=== PATIENT | female | born 1960 | race Two or more races ===

== ENCOUNTER 2022-12-06 12:04 | Inpatient (IN) | payer BC, MEDICAID, OTHER ==
[~2022-12-06] VITALS: Ht 160 cm; Wt 102.9 kg
[2022-12-06] MEDS ORDERED: SODIUM CHLORIDE 0.9% 1,000 ML IV ONE ×2 (12:15→15:00)
[2022-12-06] MEDS ORDERED: ACETAMINOPHEN 325 MG TAB PO ONE (12:30)
[2022-12-06 12:53] LABS: Basophils # (auto) 0.1 10 ^3/uL (0-0.2); Basophils % (auto) 0.5 % (0.0-2.0); Eosinophils # (auto) 0.1 10 ^3/uL (0-0.8); Eosinophils % (auto) 0.6 % (0.0-7.0); Hematocrit 41.2 % (36.0-46.0); Hemoglobin 13.3 g/dL (12.2-16.2); Lymphocytes # (auto) 1.1 10 ^3/uL (0.4-5.4); Lymphocytes % (auto) 6.2 % (10.0-50.0); Mean Corpuscular Hemoglobin 29.2 pg (28.0-32.0); Mean Corpuscular Hgb Conc. 32.4 g/dL (32.0-36.0); Mean Corpuscular Volume 90.1 fL (80.0-100.0); Monocytes # (auto) 0.6 10 ^3/uL (0-1.3); Monocytes % (auto) 3.8 % (0.0-12.0); Neutrophils # (auto) 15.2 10 ^3/uL (1.6-8.6); Neutrophils % (auto) 88.9 % (37.0-80.0); Red Blood Cells 4.57 10^6/uL (4.0-5.20); Red Cell Distribution Width 13.4 % (11.8-14.3); White Blood Cell 17.1 10^3/uL (4.4-10.8)
[2022-12-06 12:58] VITALS: PULSE 120; RESP 16; O2SAT 96
[2022-12-06 13:11] LABS: Alanine Aminotransferase 38 U/L (7-40); Albumin 4.5 g/dL (3.2-4.8); Alkaline Phosphatase 67 U/L (46-116); Anion Gap 10.5 (5-15); Aspartate Aminotransferase 31 U/L (13-40); BUN/Creatinine Ratio 16.8 (10.0-20.0); Bilirubin, Total 0.8 mg/dL (0.2-1.0); Blood Urea Nitrogen 20 mg/dL (9-23); Calcium 9.9 mg/dL (8.5-10.1); Carbon Dioxide 22.5 mmol/L (20-30); Chloride 105 mmol/L (98-107); Glucose 170 mg/dL (74-106); Potassium 4.2 mmol/L (3.5-5.1); Sodium 138 mmol/L (136-145); Total Protein 7.7 g/dL (5.7-8.2)
[2022-12-06 13:12] LABS: Lactic Acid w/Reflex 3.6 mmol/L (0.4-2.0)
[2022-12-06] MEDS ORDERED: cefTRIAXone 1GM/50ML D5W 50 ML IV ONE (13:15)
[2022-12-06] MEDS ORDERED: levoFLOXacin 500MG 100 ML IV ONE (13:15)
[2022-12-06 14:12] LABS: Urine Bacteria FEW /hpf (None Seen); Urine Blood 2+ /uL (Negative); Urine Budding Yeast MODERATE /hpf (None Seen); Urine Clarity HAZY (Clear); Urine Hyaline Cast FEW /lpf (0 - 2); Urine Mucus FEW (None Seen); Urine Protein, UAD TRACE (Negative); Urine Specific Gravity 1.013 (1.001-1.035); Urine Urobilinogen Normal (Negative); Urine WBC 362 /hpf (0 - 5); Urine WBC Clumps PRESENT /hpf (None Seen); Urine pH 6.5 (5.0-8.0)
[2022-12-06 14:13] LABS: Urine Color STRAW (Yellow)
[2022-12-06] MEDS ORDERED: LOS25T PO (14:59)
[2022-12-06] MEDS ORDERED: AMLO1TAB23 PO (14:59)
[2022-12-06] MEDS ORDERED: FENO160T PO (14:59)
[2022-12-06] MEDS ORDERED: ALLO100T PO (14:59)
[2022-12-06] MEDS: SODIUM CHLORIDE 0.9% 1,000 ML IV SCH (15:00)
[2022-12-06] MEDS ORDERED: MORPHINE SULFATE INJ 2 MG/ml SYRG IV PRN (15:00)
[2022-12-06] MEDS ORDERED: NITROGLYCERIN 0.4 MG SL TAB SL PRN (15:00)
[2022-12-06] MEDS ORDERED: DEXTROSE (50%) 50ML SYRG IV PRN (15:00)
[2022-12-06] MEDS ORDERED: hydrALAZINE HCL 20 MG/ML VL IV PRN (15:00)
[2022-12-06 15:30] LABS: LDL Cholesterol 72 mg/dL (< 100); Triglycerides 296 mg/dL (< 150)
[2022-12-06 15:32] LABS: Cholesterol 211 mg/dL (< 200); HDL Cholesterol 47 mg/dL (40-59)
[2022-12-06] MEDS: ACCU-CHEK COMFORT CURVE STRIP VI SCH ×2 (17:43→21:55)
[2022-12-06] MEDS: InsuLIN REG 1unit/0.01ml Soln (100units/ml) SC SCH ×2 (17:47→22:03)
[2022-12-06 18:48] LABS: Lactic Acid w/Reflex 2.3 mmol/L (0.4-2.0)
[2022-12-06 19:45] VITALS: PULSE 89; RESP 14; O2SAT 96
[2022-12-06 21:01] VITALS: BP 164/61; PULSE 93; RESP 20; TEMP 101.2
[2022-12-06] MEDS ORDERED: ERGO1CAP12 PO (21:18)
[2022-12-06] MEDS: ACETAMINOPHEN 325 MG TAB PO PRN (21:55)
[2022-12-06 22:00] VITALS: BP 164/61; PULSE 93; RESP 20; TEMP 101.2; O2SAT 97
[2022-12-07] VITALS (9 sets, daily range): BP systolic 132–155; BP diastolic 62–80; PULSE 72–96; RESP 17–20; TEMP 98.3–101.4; O2SAT 90–96
[2022-12-07] MEDS: ACETAMINOPHEN 325 MG TAB PO PRN ×2 (05:16→13:44)
[2022-12-07] MEDS: ACCU-CHEK COMFORT CURVE STRIP VI SCH ×4 (06:34→21:42)
[2022-12-07] MEDS: SODIUM CHLORIDE 0.9% 1,000 ML IV SCH ×3 (06:36→20:45)
[2022-12-07] MEDS: InsuLIN REG 1unit/0.01ml Soln (100units/ml) SC SCH ×4 (06:37→21:43)
[2022-12-07 06:42] LABS: Alanine Aminotransferase 26 U/L (7-40); Alkaline Phosphatase 54 U/L (46-116); Anion Gap 9.5 (5-15); BUN/Creatinine Ratio 11.8 (10.0-20.0); Blood Urea Nitrogen 10 mg/dL (9-23); Calcium 9.3 mg/dL (8.7-10.4); Carbon Dioxide 24.5 mmol/L (20-30); Chloride 103 mmol/L (98-107); Glucose 188 mg/dL (74-106); Potassium 3.5 mmol/L (3.5-5.1); Sodium 137 mmol/L (136-145)
[2022-12-07 06:43] LABS: Albumin 4.1 g/dL (3.2-4.8)
[2022-12-07 06:44] LABS: Aspartate Aminotransferase 22 U/L (13-40); Bilirubin, Total 0.7 mg/dL (0.2-1.0); Total Protein 7.2 g/dL (5.7-8.2)
[2022-12-07 06:54] LABS: Basophils # (auto) 0.1 10 ^3/uL (0-0.2); Basophils % (auto) 0.5 % (0.0-2.0); Eosinophils # (auto) 0 10 ^3/uL (0-0.8); Eosinophils % (auto) 0.3 % (0.0-7.0); Hematocrit 38.1 % (36.0-46.0); Hemoglobin 12.2 g/dL (12.2-16.2); Lymphocytes # (auto) 1.5 10 ^3/uL (0.4-5.4); Mean Corpuscular Hemoglobin 28.8 pg (28.0-32.0); Mean Corpuscular Hgb Conc. 32.1 g/dL (32.0-36.0); Mean Corpuscular Volume 89.9 fL (80.0-100.0); Monocytes # (auto) 0.6 10 ^3/uL (0-1.3); Monocytes % (auto) 4.7 % (0.0-12.0); Neutrophils # (auto) 10.3 10 ^3/uL (1.6-8.6); Neutrophils % (auto) 82.5 % (37.0-80.0); Red Blood Cells 4.24 10^6/uL (4.0-5.20); Red Cell Distribution Width 13.8 % (11.8-14.3); White Blood Cell 12.5 10^3/uL (4.4-10.8)
[2022-12-07] MEDS ORDERED: cefTRIAXone 1GM/50ML D5W 50 ML IV SCH (09:00)
[2022-12-07] MEDS: Fenofibrate 160 MG TABLETS PO SCH (09:25)
[2022-12-07] MEDS: ALLOPURINOL 100 MG TAB PO SCH (09:27)
[2022-12-07] MEDS: LOSARTAN POTASSIUM 25 MG TAB PO SCH (09:32)
[2022-12-07] MEDS: amLODIPine BESYLATE 5 MG TAB PO SCH (09:33)
[2022-12-07] MEDS: ENOXAPARIN SOD 40 MG/0.4 ML SYRINGE SC SCH (09:33)
[2022-12-07] MEDS ORDERED: levoFLOXacin 500MG 100 ML IV SCH (10:00)
[2022-12-07] MEDS: PIPERACILLIN-TAZOB 3.375GM 100 ML IV SCH ×2 (13:49→21:42)
[2022-12-08] VITALS (7 sets, daily range): BP systolic 123–152; BP diastolic 52–80; PULSE 74–80; RESP 16–94; TEMP 98.1–99.4; O2SAT 93–97
[2022-12-08] MEDS: PIPERACILLIN-TAZOB 3.375GM 100 ML IV SCH ×3 (06:48→21:10)
[2022-12-08] MEDS: InsuLIN REG 1unit/0.01ml Soln (100units/ml) SC SCH ×4 (06:49→21:15)
[2022-12-08] MEDS: SODIUM CHLORIDE 0.9% 1,000 ML IV SCH ×3 (06:49→20:45)
[2022-12-08] MEDS: ACCU-CHEK COMFORT CURVE STRIP VI SCH ×4 (06:49→21:16)
[2022-12-08 07:56] LABS: Basophils # (auto) 0 10 ^3/uL (0-0.2); Basophils % (auto) 0.2 % (0.0-2.0); Eosinophils # (auto) 0.2 10 ^3/uL (0-0.8); Eosinophils % (auto) 1.4 % (0.0-7.0); Hematocrit 37.3 % (36.0-46.0); Hemoglobin 12.4 g/dL (12.2-16.2); Lymphocytes # (auto) 2.9 10 ^3/uL (0.4-5.4); Lymphocytes % (auto) 26.4 % (10.0-50.0); Mean Corpuscular Hemoglobin 30.2 pg (28.0-32.0); Mean Corpuscular Hgb Conc. 33.3 g/dL (32.0-36.0); Mean Corpuscular Volume 90.5 fL (80.0-100.0); Monocytes # (auto) 0.9 10 ^3/uL (0-1.3); Monocytes % (auto) 7.9 % (0.0-12.0); Neutrophils % (auto) 64.1 % (37.0-80.0); Red Blood Cells 4.12 10^6/uL (4.0-5.20); Red Cell Distribution Width 13.5 % (11.8-14.3)
[2022-12-08 08:03] LABS: Alanine Aminotransferase 29 U/L (7-40); Albumin 4.2 g/dL (3.2-4.8); Alkaline Phosphatase 49 U/L (46-116); Anion Gap 9.4 (5-15); Aspartate Aminotransferase 23 U/L (13-40); BUN/Creatinine Ratio 13.4 (10.0-20.0); Bilirubin, Total 0.6 mg/dL (0.2-1.0); Blood Urea Nitrogen 11 mg/dL (9-23); Calcium 9.1 mg/dL (8.5-10.1); Carbon Dioxide 23.6 mmol/L (20-30); Chloride 101 mmol/L (98-107); Glucose 204 mg/dL (74-106); Magnesium 1.5 mg/dL (1.6-2.6); Potassium 3.4 mmol/L (3.5-5.1); Sodium 134 mmol/L (136-145); Total Protein 7.4 g/dL (5.7-8.2)
[2022-12-08] MEDS ORDERED: POTASSIUM CHL 20 Meq TABLET PO ONE (08:30)
[2022-12-08] MEDS ORDERED: cefTRIAXone 1GM/50ML D5W 50 ML IV SCH (09:00)
[2022-12-08] MEDS: amLODIPine BESYLATE 5 MG TAB PO SCH (09:32)
[2022-12-08] MEDS: ALLOPURINOL 100 MG TAB PO SCH (09:32)
[2022-12-08] MEDS: MAGNESIUM SULFATE 1GM/100ML 100 ML IV SCH ×2 (09:33→11:21)
[2022-12-08] MEDS: ENOXAPARIN SOD 40 MG/0.4 ML SYRINGE SC SCH (09:39)
[2022-12-08] MEDS: Fenofibrate 160 MG TABLETS PO SCH (10:00)
[2022-12-08] MEDS: LOSARTAN POTASSIUM 25 MG TAB PO SCH (11:21)
[2022-12-08] MEDS: MAGNESIUM OXIDE 400 MG TAB PO SCH (21:11)
[2022-12-09] VITALS (7 sets, daily range): BP systolic 129–160; BP diastolic 55–88; PULSE 69–88; RESP 18–20; TEMP 97.9–99.1; O2SAT 93–99
[2022-12-09] MEDS: SODIUM CHLORIDE 0.9% 1,000 ML IV SCH ×3 (04:45→20:45)
[2022-12-09] MEDS: PIPERACILLIN-TAZOB 3.375GM 100 ML IV SCH ×3 (05:16→21:45)
[2022-12-09] MEDS: ACCU-CHEK COMFORT CURVE STRIP VI SCH ×4 (06:21→21:37)
[2022-12-09] MEDS: InsuLIN REG 1unit/0.01ml Soln (100units/ml) SC SCH ×4 (06:21→21:34)
[2022-12-09 06:28] LABS: Anion Gap 6.9 (5-15); Carbon Dioxide 21.1 mmol/L (20-30); Chloride 105 mmol/L (98-107); Potassium 3.8 mmol/L (3.5-5.1); Sodium 133 mmol/L (136-145)
[2022-12-09 06:29] LABS: Calcium 9.3 mg/dL (8.7-10.4)
[2022-12-09 06:33] LABS: Glucose 190 mg/dL (74-106)
[2022-12-09 06:34] LABS: BUN/Creatinine Ratio 9.1 (10.0-20.0); Blood Urea Nitrogen 7 mg/dL (9-23); Magnesium 1.9 mg/dL (1.6-2.6)
[2022-12-09 06:43] LABS: Basophils # (auto) 0 10 ^3/uL (0-0.2); Basophils % (auto) 0.5 % (0.0-2.0); Eosinophils # (auto) 0.3 10 ^3/uL (0-0.8); Eosinophils % (auto) 2.9 % (0.0-7.0); Hematocrit 39.5 % (36.0-46.0); Hemoglobin 13.1 g/dL (12.2-16.2); Lymphocytes # (auto) 2.8 10 ^3/uL (0.4-5.4); Lymphocytes % (auto) 30.2 % (10.0-50.0); Mean Corpuscular Hemoglobin 30.5 pg (28.0-32.0); Mean Corpuscular Hgb Conc. 33.3 g/dL (32.0-36.0); Mean Corpuscular Volume 91.5 fL (80.0-100.0); Monocytes # (auto) 0.9 10 ^3/uL (0-1.3); Monocytes % (auto) 9.1 % (0.0-12.0); Neutrophils # (auto) 5.3 10 ^3/uL (1.6-8.6); Neutrophils % (auto) 57.3 % (37.0-80.0); Nucleated Red Blood Cells % 0.1 %; Red Blood Cells 4.31 10^6/uL (4.0-5.20); Red Cell Distribution Width 13.7 % (11.8-14.3); White Blood Cell 9.3 10^3/uL (4.4-10.8)
[2022-12-09] MEDS: Fenofibrate 160 MG TABLETS PO SCH (09:55)
[2022-12-09] MEDS: MAGNESIUM OXIDE 400 MG TAB PO SCH ×2 (10:00→21:40)
[2022-12-09] MEDS: ALLOPURINOL 100 MG TAB PO SCH (10:01)
[2022-12-09] MEDS: LOSARTAN POTASSIUM 25 MG TAB PO SCH (10:01)
[2022-12-09] MEDS: ENOXAPARIN SOD 40 MG/0.4 ML SYRINGE SC SCH (10:02)
[2022-12-09] MEDS: amLODIPine BESYLATE 5 MG TAB PO SCH (10:02)
[2022-12-10 05:00] VITALS: BP 135/70; PULSE 75; RESP 20; TEMP 98; O2SAT 94
[2022-12-10] MEDS: ACCU-CHEK COMFORT CURVE STRIP VI SCH ×3 (06:24→17:00)
[2022-12-10] MEDS: PIPERACILLIN-TAZOB 3.375GM 100 ML IV SCH ×2 (06:24→13:20)
[2022-12-10] MEDS: SODIUM CHLORIDE 0.9% 1,000 ML IV SCH ×2 (06:24→12:45)
[2022-12-10] MEDS: InsuLIN REG 1unit/0.01ml Soln (100units/ml) SC SCH ×3 (06:26→17:00)
[2022-12-10 08:00] VITALS: PULSE 18
[2022-12-10] MEDS: Fenofibrate 160 MG TABLETS PO SCH (08:31)
[2022-12-10] MEDS: ENOXAPARIN SOD 40 MG/0.4 ML SYRINGE SC SCH (08:36)
[2022-12-10] MEDS: amLODIPine BESYLATE 5 MG TAB PO SCH (08:38)
[2022-12-10] MEDS: LOSARTAN POTASSIUM 25 MG TAB PO SCH (08:38)
[2022-12-10] MEDS: MAGNESIUM OXIDE 400 MG TAB PO SCH (08:38)
[2022-12-10] MEDS: ALLOPURINOL 100 MG TAB PO SCH (08:43)
[2022-12-10 09:18] VITALS: BP 143/74; PULSE 74; RESP 18; TEMP 98.5; O2SAT 91
[2022-12-10 12:43] VITALS: BP 144/70; PULSE 80; RESP 20; TEMP 98.3; O2SAT 97
[2022-12-10] MEDS ORDERED: CIPR-173 PO (15:58)
[2022-12-10 16:50] VITALS: BP 144/70; PULSE 78; RESP 17; TEMP 98.1; O2SAT 98
== END 2022-12-10 19:05 | disposition home or self-care (01) | DRG 872 ==
LOC: ER 12:04 → EDBD 12:04 → TELE 14:56 → TELE-WESTW 20:38
PROVIDERS: ADMIT Nurse Practitioner Family; ATTEND Internal Medicine Geriatric Medicine
DX: A41.59 Other Gram-negative sepsis (principal); Z68.41 Body mass index [BMI] 40.0-44.9, adult; N39.0 Urinary tract infection, site not specified; E66.01 Morbid (severe) obesity due to excess calories; E78.5 Hyperlipidemia, unspecified; I10 Essential (primary) hypertension; B96.4 Proteus (mirabilis) (morganii) as the cause of diseases classified elsewhere; E11.9 Type 2 diabetes mellitus without complications
CPT/HCPCS: 36415; 71045; 74176; 80048; 80053; 80061; 81001; 82962; 83036; 83605; 83690; 83735; 84443; 85025; 87040; 87077; 87086; 87186; 93005; G0378; J0696; J1815; J1956; J2543